=== PATIENT | female | born 1935 | race African-American/Black ===

== ENCOUNTER 2017-01-27 18:04 | Emergency (ER) | payer MEDICARE, OTHER ==
[~2017-01-27] VITALS: Ht 170.2 cm; Wt 82.0 kg
[2017-01-27] MEDS ORDERED: HYDROCODONE/ACETAMINOPHEN 5/325MG TABLET PO ONE (21:15)
[2017-01-27 23:15] VITALS: BP 147/85
== END 2017-01-28 00:14 | disposition home or self-care (01) ==
LOC: ER 21:05
DX: S53.402A Unspecified sprain of left elbow, initial encounter (principal); S00.10XA Contusion of unspecified eyelid and periocular area, initial encounter; S00.83XA Contusion of other part of head, initial encounter; S80.211A Abrasion, right knee, initial encounter; R51 Headache; M25.522 Pain in left elbow; M25.461 Effusion, right knee; I10 Essential (primary) hypertension; E78.00 Pure hypercholesterolemia, unspecified; E11.9 Type 2 diabetes mellitus without complications; W10.9XXA Fall (on) (from) unspecified stairs and steps, initial encounter; Y93.89 Activity, other specified; Y99.8 Other external cause status; Y92.89 Other specified places as the place of occurrence of the external cause; Z88.8 Allergy status to other drugs, medicaments and biological substances
CPT/HCPCS: 70450; 70486; 73080; 73562; 99284; A4565

== ENCOUNTER 2017-06-15 15:15 | Emergency (ER) | payer OTHER ==
[~2017-06-15] VITALS: Ht 162.6 cm; Wt 80.0 kg
[2017-06-15 16:10] LABS: BASOPHILS % 0.4 % (0.0-2.0); HEMOGLOBIN. 10.9 g/dL (12.0-16.0); LYMPHOCYTES % 43.7 % (20.0-50.0); MEAN CORPUSCULAR VOLUME 87.4 fL (81.0-99.0); MEAN PLATELET VOLUME 7.6 fl (7.4-10.4); MONOCYTES % 9.4 % (2.0-8.0); NEUTROPHILS % 44.5 % (40.0-76.0); PLATELET 196 x1000/uL (130-400); RED BLOOD CELL COUNT 3.77 mill/uL (4.2-5.4); RED CELL DISTRIBUTION WIDTH 13.9 % (11.6-14.6)
[2017-06-15 16:17] LABS: PARTIAL THROMBOPLASTIN TIME 24.3 sec (23.4-31.0); PROTHROMBIN TIME 10.3 sec (9.4-11.6)
[2017-06-15 16:19] LABS: CARBON DIOXIDE 27 mEq/L (21-32); CHLORIDE 105 mEq/L (98-107)
[2017-06-15 16:26] LABS: TROPONIN I < 0.02 ng/mL (0.00-0.04)
[2017-06-15 20:15] VITALS: BP 132/61
== END 2017-06-15 20:50 | disposition home or self-care (01) ==
LOC: ER 15:38
DX: R42 Dizziness and giddiness (principal); E11.9 Type 2 diabetes mellitus without complications; I10 Essential (primary) hypertension; E78.00 Pure hypercholesterolemia, unspecified; Z88.8 Allergy status to other drugs, medicaments and biological substances
CPT/HCPCS: 36415; 70450; 71010; 80053; 83690; 84484; 85025; 85610; 85730; 93005; 99285